=== PATIENT | male | born 1970 | race Caucasian/White ===

== ENCOUNTER 2018-03-06 08:27 | Emergency (ER) | payer OTHER ==
[2018-03-06 09:01] VITALS: BP 121/82; PULSE 72; TEMP 98.5; BMI 24.9
[2018-03-06] MEDS ORDERED: KETOROLAC TROMETHAMINE 60 MG/2 ML VIAL IM ONE (09:32)
[2018-03-06] MEDS ORDERED: KETOROLAC TROMETHAMINE 60 MG/2 ML VIAL ONE (09:37)
--- NOTE | 2018-03-06 09:50 | PDOC ---
History of Present Illness - General Chief Complaint: Back Pain Stated Complaint: BACK PAIN Time Seen by Provider: 03/06/18 09:15 History Source: Patient Exam Limitations: No Limitations - History of Present Illness Initial Comments: 03/06/18 09:47 47 yr female with c/o low back pain after lifting heavy cooler with ice and water yesterday afternoon. Pt thought the cooler was empthy so he lifted it and felt immediate pain to low back. Pt has no leg weakness or numbness, no diff urinating or bowel dysfunction. Pt did not take any pain meds [employer], has had low back pain in the past. Past History - Past Medical History Allergies/Adverse Reactions: Allergies Allergy/AdvReac Type Severity Reaction Status Date / Time No Known Allergies Allergy Verified 03/06/18 09:01 Home Medications: Ambulatory Orders Cyclobenzaprine HCl [Flexeril -] 10 mg PO TID PRN #21 tablet 03/06/18 Ibuprofen 800 mg PO TID PRN #21 tablet 03/06/18 - Suicide/Smoking/Psychosocial Hx Smoking History: Never smoked Have you smoked in the past 12 months: No Information on smoking cessation initiated: No Hx Alcohol Use: No Drug/Substance Use Hx: No Trauma Specific PMHX - Complaint Specific PMHX Back Injury: No Review of Systems - Review of Systems Able to Perform ROS?: Yes Is the patient limited Swedish proficient: No Constitutional: No: Symptoms Reported HEENTM: No: Symptoms Reported Respiratory: No: Symptoms reported Cardiac (ROS): No: Symptoms Reported ABD/GI: No: Symptoms Reported : No: Symptoms Reported Musculoskeletal: Yes: Back Pain *Physical Exam - Vital Signs Last Vital Signs Temp Pulse Resp BP Pulse Ox 98.5 F 72 18 121/82 97 03/06/18 08:59 03/06/18 08:59 03/06/18 08:59 03/06/18 08:59 03/06/18 08:59 - Physical Exam General Appearance: Yes: Nourished, Appropriately Dressed HEENT: positive: EOMI, KIRBY Neck: positive: Supple Respiratory/Chest: positive: Lungs Clear, Normal Breath Sounds Cardiovascular: positive: Regular Rhythm, Regular Rate Gastrointestinal/Abdominal: positive: Normal Bowel Sounds, Soft. negative: Tender Rectal Exam: positive: deferred Lymphatic: negative: Adenopathy Musculoskeletal: positive: Normal Inspection, Decreased Range of Motion, Muscle Spasm, Other (paraspinal lumbar soft tissue ttp with spasm across the lower back neg ). negative: Vertebral Tenderness Extremity: positive: Normal Capillary Refill, Normal Inspection, Normal Range of Motion, Other (neg SLR bilaterally ) Integumentary: positive: Normal Color, Dry, Warm Neurologic: positive: Fully Oriented, Alert, Normal Mood/Affect, Normal Response , Motor Strength /5 ED Treatment Course - RADIOLOGY Radiology Studies Ordered: Category Date Time Status SPINE-LUMBAR ONLY [RAD] Stat Radiology 03/06/18 09:32 Ordered - Medications Given in the ED: ED Medications Discontinued Medications Generic Name Dose Route Start Last Admin Trade Name Freq PRN Reason Stop Dose Admin Ketorolac Tromethamine 60 mg 03/06/18 09:32 03/06/18 09:42 Toradol Injection - IM 03/06/18 09:33 60 mg ONCE ONE Administration Medical Decision Making - Medical Decision Making 03/06/18 09:50 cc: acute low back pain will give toradol lumbar spine xray 03/06/18 14:41 pt feels better is ambulating freely after the injection. dc inst given to the patient in fijian all questions asked and answered at discharge. *DC/Admit/Observation/Transfer Diagnosis at time of Disposition: Low back pain Qualifiers: Chronicity: acute Back pain laterality: midline Sciatica presence: without sciatica Qualified Code(s): M54.5 - Low back pain - Discharge Dispostion Disposition: HOME Condition at time of disposition: Good - Prescriptions Prescriptions: Cyclobenzaprine HCl [Flexeril -] 10 mg PO TID PRN #21 tablet PRN Reason: Muscle Spasms Ibuprofen 800 mg PO TID PRN #21 tablet PRN Reason: Back Pain - Referrals Referrals: Hemanth Carbone MD, [facility] [Staff Physician] - Sebastián Reed MD [Staff Physician] - - Patient Instructions Printed Discharge Instructions: DI for Low Back Pain Additional Instructions: apply warm compresses to the lower back every 4hrs for 30 minutes, alterante with ice pack for 20 minutes take the muscle relaxant Flexeril as directed DO NOT DRIVE while taking this take the ibuprofen for pain follow with for back pain follow up follow with for primary care return to ER for any worsening symptoms - Post Discharge Activity
== END 2018-03-06 10:35 | disposition home or self-care (01) ==
LOC: JERFT 08:27
PROC: 3E0233Z Introduction of Anti-inflammatory into Muscle, Percutaneous Approach (ICD-10-PCS; principal; 2018-03-06)
DX: M54.5 Low back pain (principal)
CPT/HCPCS: 72100-TC-FY; 96372; 99281-25

== ENCOUNTER 2024-01-14 18:24 | Emergency (ER) | payer OTHER, BC ==
[2024-01-14 18:36] VITALS: BP 129/81; PULSE 73; RESP 18; TEMP 98.3; BMI 26.5
[2024-01-14] MEDS ORDERED: ACETAMINOPHEN 500 MG TABLET (FP) ONE ×2 (19:19→19:22)
[2024-01-14] MEDS ORDERED: IBUPROFEN 600 MG TABLET (FP) PO ONE (19:19)
[2024-01-14] MEDS: IBUPROFEN 600 MG TABLET (FP) PO ONE (19:25)
[2024-01-14] MEDS: ACETAMINOPHEN 500 MG TABLET (FP) PO ONE (19:26)
== END 2024-01-14 20:01 | disposition home or self-care (01) ==
LOC: JERFT 18:24 → JER 18:24 → JERFT 20:01
DX: S49.91XA Unspecified injury of right shoulder and upper arm, initial encounter (principal); W17.89XA Other fall from one level to another, initial encounter; Y99.0 Civilian activity done for income or pay
CPT/HCPCS: 73030-TC-RT-FY; 99283-25